=== PATIENT | male | born 1975 | race American Indian/Alaskan Native ===

== ENCOUNTER 2018-03-09 11:57 | Emergency (ER) | payer OTHER ==
[2018-03-09] MEDS ORDERED: IBUPROFEN PO ONE (12:13)
--- NOTE | 2018-03-09 12:17 | Emergency Department Report ---
ED ENT HPI - General Chief complaint: Dental/Oral Stated complaint: ABSCESS ON GUM Time Seen by Provider: 03/09/18 12:06 Source: patient Mode of arrival: Ambulatory Limitations: No Limitations - History of Present Illness Initial comments: 42-year-old Ethiopian male presents to the emergency room for swelling of the right side of face. Patient states his gum has an abscess onset yesterday. Patient reports is took [id number] Tylenol for pain. Patient reports pain to 5 out of 10. Patient is aware that he has a bad tooth in his mouth. He does not have a primary dentist. MD complaint: tooth pain -: days(s) (1) Location: tooth # (1) Severity scale (0 -10): 5 Quality: aching Consistency: constant Improves with: none Worsens with: none Context- Dental: history of dental caries, poor dental care Associated Symptoms: gum swelling. denies: fever, pain with swallowing, sore throat - Related Data Previous Rx's Medication Instructions Recorded Last Taken Type Amoxicillin/K Clav Tab [Augmentin 1 tab PO BID 10 Days tablet 02/09/13 Unknown Rx 875MG] traMADol [Ultram 50 MG tab] 50 mg PO Q6HR PRN #15 tablet 02/09/13 Unknown Rx Amoxicillin 500 mg PO Q8H #30 capsule 03/09/18 Unknown Rx Ibuprofen [Motrin 600 MG tab] 600 mg PO Q8H #30 tablet 03/09/18 Unknown Rx Allergies Allergy/AdvReac Type Severity Reaction Status Date / Time No Known Allergies Allergy Verified 03/09/18 12:03 ED Dental HPI - General Chief complaint: Dental/Oral Stated complaint: ABSCESS ON GUM Time Seen by Provider: 03/09/18 12:06 Source: patient Mode of arrival: Ambulatory Limitations: No Limitations - Related Data Previous Rx's Medication Instructions Recorded Last Taken Type Amoxicillin/K Clav Tab [Augmentin 1 tab PO BID 10 Days tablet 02/09/13 Unknown Rx 875MG] traMADol [Ultram 50 MG tab] 50 mg PO Q6HR PRN #15 tablet 02/09/13 Unknown Rx Amoxicillin 500 mg PO Q8H #30 capsule 03/09/18 Unknown Rx Ibuprofen [Motrin 600 MG tab] 600 mg PO Q8H #30 tablet 03/09/18 Unknown Rx Allergies Allergy/AdvReac Type Severity Reaction Status Date / Time No Known Allergies Allergy Verified 03/09/18 12:03 ED Review of Systems ROS: Stated complaint: ABSCESS ON GUM Other details as noted in HPI Comment: All other systems reviewed and negative ENT: dental pain ED Past Medical Hx - Past Medical History Previous Medical History?: No - Surgical History Past Surgical History?: No - Social History Smoking Status: Current Every Day Smoker Substance Use Type: None - Medications Home Medications: Home Medications Medication Instructions Recorded Confirmed Last Taken Type Amoxicillin/K Clav Tab [Augmentin 1 tab PO BID 10 Days tablet 02/09/13 Unknown Rx 875MG] traMADol [Ultram 50 MG tab] 50 mg PO Q6HR PRN #15 tablet 02/09/13 Unknown Rx Amoxicillin 500 mg PO Q8H #30 capsule 03/09/18 Unknown Rx Ibuprofen [Motrin 600 MG tab] 600 mg PO Q8H #30 tablet 03/09/18 Unknown Rx ED Physical Exam - General Limitations: No Limitations General appearance: alert, in no apparent distress - Head Head exam: Present: atraumatic, normocephalic - Expanded ENT Exam Expanded Teeth exam: Present: dental caries, dental tenderness # (1), gingival enlargement - Cardiovascular Cardiovascular Exam: Present: tachycardia ED Course Vital Signs 03/09/18 12:03 Temperature 98.4 F Pulse Rate 113 H Respiratory 16 Rate Blood Pressure 119/71 O2 Sat by Pulse 97 Oximetry Critical care attestation.: If time is entered above; I have spent that time in minutes in the direct care of this critically ill patient, excluding procedure time. ED Disposition Clinical Impression: Dental abscess Disposition: [id number] TO HOME OR SELFCARE Is pt being admited?: No Does the pt Need Aspirin: No Condition: Stable Instructions: Dental Abscess (ED) Additional Instructions: Please complete antibiotics as prescribed. Pain medication as needed. Please increase her water intake what taken ibuprofen. Follow up with a primary dental provider I have listed several below for your convenience. Prescriptions: Amoxicillin 500 mg PO Q8H #30 capsule Ibuprofen [Motrin 600 MG tab] 600 mg PO Q8H #30 tablet Referrals: [facility] [Outside] - 3-5 Days [facility] [Outside] - 3-5 Days [facility] [Outside] - 3-5 Days Forms: Work/School Release Form(ED)
[2018-03-10 14:00] VITALS: BP 119/71
== END 2018-03-09 12:25 | disposition home or self-care (01) ==
LOC: ED 11:57
DX: K04.7 Periapical abscess without sinus (principal); F17.200 Nicotine dependence, unspecified, uncomplicated
CPT/HCPCS: 99282

== ENCOUNTER 2018-06-08 16:36 | Emergency (ER) | payer OTHER ==
[2018-06-08 16:45] VITALS: BP 126/79
--- NOTE | 2018-06-08 16:50 | Emergency Department Report ---
ED ENT HPI - General Chief complaint: Dental/Oral Stated complaint: ABSCESS MOUTH Time Seen by Provider: 06/08/18 16:43 Source: patient Mode of arrival: Ambulatory Limitations: No Limitations - History of Present Illness Initial comments: 42 y/o male with poor dentition reports recurrent dentalgia and caries complaint: tooth pain -: month(s) (recurrent issue) Location: tooth # Severity: mild Quality: aching Consistency: constant Improves with: none Worsens with: none - Related Data Previous Rx's Medication Instructions Recorded Last Taken Type Amoxicillin/K Clav Tab [Augmentin 1 tab PO BID 10 Days tablet 02/09/13 Unknown Rx 875MG] traMADol [Ultram 50 MG tab] 50 mg PO Q6HR PRN #15 tablet 02/09/13 Unknown Rx Amoxicillin 500 mg PO Q8H #30 capsule 03/09/18 Unknown Rx Ibuprofen [Motrin 600 MG tab] 600 mg PO Q8H #30 tablet 03/09/18 Unknown Rx Amoxicillin [Amoxicillin TAB] 875 mg PO BID #20 tablet 06/08/18 Unknown Rx Chlorhexidine Mouthwash [Peridex] 15 ml MM BID #473 bottle 06/08/18 Unknown Rx Ketorolac [Toradol] 10 mg PO Q6H PRN #15 tablet 06/08/18 Unknown Rx Lidocaine Viscous 2% 5 ml MM Q3H PRN #120 udc 06/08/18 Unknown Rx Allergies Allergy/AdvReac Type Severity Reaction Status Date / Time No Known Allergies Allergy Verified 03/09/18 12:03 ED Dental HPI - General Chief complaint: Dental/Oral Stated complaint: ABSCESS MOUTH Time Seen by Provider: 06/08/18 16:43 Source: patient Mode of arrival: Ambulatory Limitations: No Limitations - Related Data Previous Rx's Medication Instructions Recorded Last Taken Type Amoxicillin/K Clav Tab [Augmentin 1 tab PO BID 10 Days tablet 02/09/13 Unknown Rx 875MG] traMADol [Ultram 50 MG tab] 50 mg PO Q6HR PRN #15 tablet 02/09/13 Unknown Rx Amoxicillin 500 mg PO Q8H #30 capsule 03/09/18 Unknown Rx Ibuprofen [Motrin 600 MG tab] 600 mg PO Q8H #30 tablet 03/09/18 Unknown Rx Amoxicillin [Amoxicillin TAB] 875 mg PO BID #20 tablet 06/08/18 Unknown Rx Chlorhexidine Mouthwash [Peridex] 15 ml MM BID #473 bottle 06/08/18 Unknown Rx Ketorolac [Toradol] 10 mg PO Q6H PRN #15 tablet 06/08/18 Unknown Rx Lidocaine Viscous 2% 5 ml MM Q3H PRN #120 udc 06/08/18 Unknown Rx Allergies Allergy/AdvReac Type Severity Reaction Status Date / Time No Known Allergies Allergy Verified 03/09/18 12:03 ED Review of Systems ROS: Stated complaint: ABSCESS MOUTH Other details as noted in HPI Constitutional: denies: chills, fever Eyes: denies: eye pain, eye discharge, vision change ENT: denies: ear pain, throat pain Respiratory: denies: cough, shortness of breath, wheezing Cardiovascular: denies: chest pain, palpitations Endocrine: no symptoms reported Gastrointestinal: denies: abdominal pain, nausea, diarrhea Genitourinary: denies: urgency, dysuria Musculoskeletal: denies: back pain, joint swelling, arthralgia Skin: denies: rash, lesions Neurological: denies: headache, weakness, paresthesias Psychiatric: denies: anxiety, depression Hematological/Lymphatic: denies: easy bleeding, easy bruising ED Past Medical Hx - Past Medical History Previous Medical History?: No - Surgical History Past Surgical History?: No - Social History Smoking Status: Current Some Day Smoker Substance Use Type: Alcohol - Medications Home Medications: Home Medications Medication Instructions Recorded Confirmed Last Taken Type Amoxicillin/K Clav Tab [Augmentin 1 tab PO BID 10 Days tablet 02/09/13 Unknown Rx 875MG] traMADol [Ultram 50 MG tab] 50 mg PO Q6HR PRN #15 tablet 02/09/13 Unknown Rx Amoxicillin 500 mg PO Q8H #30 capsule 03/09/18 Unknown Rx Ibuprofen [Motrin 600 MG tab] 600 mg PO Q8H #30 tablet 03/09/18 Unknown Rx Amoxicillin [Amoxicillin TAB] 875 mg PO BID #20 tablet 06/08/18 Unknown Rx Chlorhexidine Mouthwash [Peridex] 15 ml MM BID #473 bottle 06/08/18 Unknown Rx Ketorolac [Toradol] 10 mg PO Q6H PRN #15 tablet 06/08/18 Unknown Rx Lidocaine Viscous 2% 5 ml MM Q3H PRN #120 udc 06/08/18 Unknown Rx ED Physical Exam - General Limitations: No Limitations General appearance: alert, in no apparent distress - Head Head exam: Present: atraumatic, normocephalic - Eye Eye exam: Present: normal appearance, PERRL, EOMI Pupils: Present: normal accommodation - ENT ENT exam: Present: normal exam, normal orophraynx, mucous membranes moist, TM's normal bilaterally, other (severe dental errosion. gingival erythema with edema. airway patent. ) - Neck Neck exam: Present: normal inspection, full ROM - Respiratory Respiratory exam: Present: normal lung sounds bilaterally. Absent: respiratory distress, wheezes, rales, rhonchi, decreased breath sounds, prolonged expiratory - Cardiovascular Cardiovascular Exam: Present: regular rate, normal rhythm. Absent: systolic murmur, diastolic murmur, rubs, gallop - GI/Abdominal GI/Abdominal exam: Present: soft, normal bowel sounds - Rectal Rectal exam: Present: deferred - Extremities Exam Extremities exam: Present: normal inspection - Back Exam Back exam: Present: normal inspection - Neurological Exam Neurological exam: Present: alert, oriented X3 - Psychiatric Psychiatric exam: Present: normal affect, normal mood - Skin Skin exam: Present: warm, dry, intact, normal color. Absent: rash ED Course Vital Signs 06/08/18 16:42 Temperature 98.2 F Pulse Rate 90 Respiratory 16 Rate Blood Pressure 126/79 [Left] O2 Sat by Pulse 99 Oximetry Critical care attestation.: If time is entered above; I have spent that time in minutes in the direct care of this critically ill patient, excluding procedure time. ED Disposition Clinical Impression: Dentalgia, Infected dental caries Disposition: - TO HOME OR SELFCARE Is pt being admited?: No Does the pt Need Aspirin: No Condition: Stable Instructions: Dental Caries (ED), Toothache (ED) Prescriptions: Amoxicillin [Amoxicillin TAB] 875 mg PO BID #20 tablet Lidocaine Viscous 2% 5 ml MM Q3H PRN #120 udc PRN Reason: Pain, Moderate (4-6) Chlorhexidine Mouthwash [Peridex] 15 ml MM BID #473 bottle Ketorolac [Toradol] 10 mg PO Q6H PRN #15 tablet PRN Reason: Pain Referrals: [facility] [Outside] - 3-5 Days
== END 2018-06-08 17:00 | disposition home or self-care (01) ==
LOC: ED 16:36
DX: K02.9 Dental caries, unspecified (principal); F17.200 Nicotine dependence, unspecified, uncomplicated
CPT/HCPCS: 99282

== ENCOUNTER 2020-06-01 21:50 | Emergency (ER) | payer OTHER ==
[2020-06-02 00:24] VITALS: BP 127/77
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
== END 2020-06-02 01:21 | disposition home or self-care (01) ==
LOC: ED 21:50
DX: M25.562 Pain in left knee (principal); F17.200 Nicotine dependence, unspecified, uncomplicated; Z79.899 Other long term (current) drug therapy; V49.49XA Driver injured in collision with other motor vehicles in traffic accident, initial encounter; Y93.89 Activity, other specified; Y92.488 Other paved roadways as the place of occurrence of the external cause; Y99.8 Other external cause status
CPT/HCPCS: 99282